=== PATIENT | male | born 1995 | race Caucasian/White ===

== ENCOUNTER → 2018-12-12 | Outpatient (CLI) | payer BC ==
[~2018-12-12] MED LIST: AMOXICILLIN 50500 MG PO; DUO-KAPS1 CAP PO; MELATONIN CR3 MG PO; PREVACID 15MG15 M1 PO; SINGULAIR10 MG PO; ZOLOFT100 MG PO
== END ==
LOC: COL.RAD 14:48
DX: M79.621 Pain in right upper arm (principal)